=== PATIENT | male | born 1945 | race Caucasian/White ===

== ENCOUNTER 2021-02-04 17:10 | Inpatient (IN) | payer OTHER ==
[~2021-02-04] VITALS: Ht 180.3 cm; Wt 60.1 kg
--- NOTE | 2021-02-04 17:10 | NUR ---
PT BIBRA 89 FROM HOME "FOUND PT LAYING ON THE FLOOR WITH FECES AND COMPLAINING OF WEAKNESS AND MULTIPLE FALL" PT IS AAOX3, NOT IN RESPIRATORY DISTRESS, HOOKED TO WALL TAPER, KEPT RESTED AND COMFORTABLE. WILL CONTINUE TO MONITOR.
--- NOTE | 2021-02-04 17:25 | NUR ---
IV LINE ESTABLISHED BLOOD DRAWN AND SENT TO LAB.
--- NOTE | 2021-02-04 17:51 | NUR ---
SEEN AND EXAMINED BY .
[2021-02-04 18:04] LABS: BASOPHILS % (AUTO) 0.6 % (0.0-2.0); EOSINOPHILS % (AUTO) 8.1 % (0.0-6.0); HEMATOCRIT 45 % (39-51); HEMOGLOBIN 14.8 g/dL (13.5-17.5); LYMPHOCYTES # (AUTO) 1.6 K/uL (0.8-4.8); LYMPHOCYTES % (AUTO) 25.7 % (20.0-44.0); MEAN CORPUSCULAR HGB CONC 33 g/dl (31.0-36.0); MEAN CORPUSCULAR VOLUME 105 fL (80-96); MONOCYTES # (AUTO) 0.4 K/uL (0.1-1.30); MONOCYTES % (AUTO) 6.4 % (2.0-12.0); NEUTROPHILS # (AUTO) 3.6 K/uL (1.8-8.9); NEUTROPHILS % (AUTO) 59.2 % (43.0-81.0); PLATELET COUNT (AUTO) 198 K/uL (150-450); WHITE BLOOD COUNT (AUTO) 6.1 K/uL (4.3-11.0)
--- NOTE | 2021-02-04 18:17 | NUR ---
CALLED [facility] [phone] THEY WILL FAX INFO TO US.
--- NOTE | 2021-02-04 18:17 | NUR ---
URINE SPECIMEN COLLECTED AND SENT TO LAB.
--- NOTE | 2021-02-04 18:19 | NUR ---
MOVE SHEET SUBMITTED.
--- NOTE | 2021-02-04 18:22 | NUR ---
PT IS WHEELED TO CT SCAN VIA [facility].
[2021-02-04 18:26] LABS: BILIRUBIN,URINE SMALL (NEGATIVE); COLOR,URINE DARK YELLOW (YELLOW); LEUKOCYTE ESTERASE ,URINE Negative (NEGATIVE); NITRITE, URINE Negative (NEGATIVE); PH,URINE 5.5 (5.0-8.0); PROTEIN,URINE Trace mg/dl (NEGATIVE); UGLUCOSE Negative (NEGATIVE)
[2021-02-04 18:29] LABS: ALCOHOL, BLOOD < 3 mg/dL (0-0); MAGNESIUM 2.4 mg/dL (1.8-2.4)
[2021-02-04] MEDS ORDERED: LISI40TA13 PO (18:31)
[2021-02-04] MEDS ORDERED: DABI150C PO (18:31)
[2021-02-04] MEDS ORDERED: CALC500T52 PO (18:31)
[2021-02-04] MEDS ORDERED: ATOR10TA PO (18:31)
[2021-02-04] MEDS ORDERED: CHOL100062 PO (18:31)
[2021-02-04] MEDS ORDERED: DICL100G34 TP (18:31)
[2021-02-04] MEDS ORDERED: BISO10TA PO (18:31)
[2021-02-04] MEDS ORDERED: DILT180C93 PO (18:31)
[2021-02-04] MEDS ORDERED: HYDR12.55 PO (18:31)
[2021-02-04 18:38] LABS: ALANINE AMINOTRANSFERASE 35 U/L (12-78); ALBUMIN 2.6 g/dL (3.4-5.0); ALKALINE PHOSPHATASE 117 U/L (46-116); ASPARTATE AMINOTRANSFERASE 50 U/L (15-37); BILIRUBIN,DIRECT 0.7 mg/dL (0.0-0.2); BILIRUBIN,TOTAL 1.4 mg/dL (0.2-1.0); CARBON DIOXIDE 26 mmol/L (21-32); CHLORIDE 108 mmol/L (98-107); CREATININE 1.4 mg/dL (0.6-1.3); GLUCOSE 114 mg/dL (74-106); POTASSIUM 5.4 mmol/L (3.5-5.1); SODIUM SERUM 145 mmol/L (136-145); TOTAL PROTEIN, SERUM 7.9 g/dL (6.4-8.2); UREA NITROGEN, BLOOD 49 mg/dL (7-18)
[2021-02-04 18:50] LABS: CALCIUM, SERUM 8.5 mg/dL (8.5-10.1)
[2021-02-04] MEDS ORDERED: CEFTRIAXONE 1GM BAG (ER ONLY) 50 ML IV ONE (19:13)
--- NOTE | 2021-02-04 19:13 | NUR ---
CALLED JADA FOR READ
[2021-02-04 19:16] LABS: BACTERIA,URINE Few /HPF (None Seen); SQUAMOUS EPITHELIAL CELL,UR Many /HPF (None Seen); URINE AMORPHOUS URATE Many /HPF (None Seen)
[2021-02-04 19:17] LABS: WBC,URINE 0-2 /HPF (0-3)
[2021-02-04] MEDS ORDERED: CEFTRIAXONE 1 G in IV D5W 50 ML IV ONE (19:30)
[2021-02-04] MEDS ORDERED: NS 0.9% IV ONE (19:30)
--- NOTE | 2021-02-04 19:43 | NUR ---
BROUGHT TO CT
[2021-02-04 19:46] LABS: CREATINE KINASE, TOTAL 443 U/L (39-308)
[2021-02-04] MEDS ORDERED: AZITHROMYCIN 500 MG VIAL ONE (19:54)
[2021-02-04] MEDS ORDERED: ASPIRIN 81 MG TAB.CHEW PO ONE (20:00)
[2021-02-04] MEDS ORDERED: AZITHROMYCIN 500 MG in IV D5W 250 ML IV ONE (20:00)
--- NOTE | 2021-02-04 20:48 | NUR ---
NOTICED BP TO BE IN THE HIGH 80'S. I DID NOTIFY DAISY SETH. MD VILLA WILL ORDER 1L NS.
[2021-02-04] MEDS ORDERED: IV NS 0.9% 1,000 ML IV ONE (21:00)
[2021-02-04] MEDS ORDERED: NOREPINEPHRINE 4 MG/4 ML AMPUL IV ONE (21:07)
--- NOTE | 2021-02-04 21:21 | NUR ---
UPDATED PT WEIGHT 143LBS.
--- NOTE | 2021-02-04 21:27 | NUR ---
SAL SETH AT BEDSIDE FOR CENTRAL LINE. PT SIGNED CONSENT.
[2021-02-04] MEDS ORDERED: NOREPINEPHRINE 8 MG in IV NS 0.9% 242 ML IV PRN ×2 (21:30→22:30)
[2021-02-04] MEDS ORDERED: LIDOCAINE 2% JEL UROJET 10 ML MM ONE (21:46)
--- NOTE | 2021-02-04 21:54 | NUR ---
SAL SETH TALKING TO DR. HUGHES REGARDING PT.
--- NOTE | 2021-02-04 22:18 | NUR ---
ROOM 258
[2021-02-04] MEDS ORDERED: INSULIN REGULAR, HUMAN 100 UNIT/ML 10 ML VIAL IV ONE (22:30)
[2021-02-04] MEDS ORDERED: DICLOFENAC TOPICAL 100 GM GEL..GM. TP PRN (22:30)
[2021-02-04] MEDS ORDERED: ONDANSETRON HCL/PF 4 MG/2 ML VIAL IVP PRN (22:30)
[2021-02-04] MEDS ORDERED: DEXTROSE 50%-WATER 50 ML DISP.SYRIN IVP ONE (22:30)
[2021-02-04] MEDS ORDERED: ACETAMINOPHEN 325 MG TABLET PO PRN (22:30)
--- NOTE | 2021-02-04 22:54 | NUR ---
REPORT GIVEN TO RN, PT TRANSFERED PER ACLS PROTOCOL
[2021-02-04] MEDS ORDERED: VANCOMYCIN 1 GM in IV D5W 250ml IV ONE (23:00)
[2021-02-04 23:16] LABS: C-REACTIVE PROTEIN 10.9 mg/dL (0.0-0.9)
--- NOTE | 2021-02-04 23:30 | NUR ---
RN NOTES 2245 PM - ADMITTED PATIENT AWAKE ALERT ORIENTED X 2, FORGETFUL AND [place], DX. WITH SEPTIC SHOCK SECONDARY TO DUSTY. PER PATIENT HE HAS HEARING AID AT HOME. NO ACUTE RESPIRATORY DISTRESS ON O2 6LPM VIA NC SATURATION HARD TO READ, DUE TO LOW PERFUSION AND COLD EXT. O2 SENSOR PLACE IN A DIFFERENT PLACE BUT STILL LOW READING <90% NOT GOOD WAVE FORM. PATIENT IS ASYMPTOMATIC DENIES SOB. JUCTIONAL TACHYCARDIA WITH OCCASIONAL V- PACING, ON MONITOR. AFEBRILE. SBP ON 116 MMHG HOLD LEVOPHED AT THIS TIME WHICH STARTED FROM ER @ .1 MCG/KG/MIN. IV SITE ON RFA, LAC AND RIGHT FEMORAL TLC ALL INTACT AND PATENT WITH GOOD BLOOD RETURN. PRESENT WITH CHAMBERS CATH DRAINED VIA GRAVITY. MULTIPLE WOUNDS NOTED. PICTURE TAKEN AND COVERED. KEPT PT CLEAN AND COMFORTABLE IN BED. TURN AND REPOSITION FOR SKIN MANAGEMENT. BED KEPT IN LOWEST POSSIBLE POSITION WITH BED ALARM KEPT ON. WILL CONTINUE TO MONITOR.
[2021-02-04] MEDS ORDERED: VANCOMYCIN 1 GM VIAL ONE (23:35)
[2021-02-04] MEDS ORDERED: PIPERACILLIN /TAZOBACTAM 3.375 G VIAL IV ONE (23:35)
[2021-02-04 23:45] VITALS: BP 129/17
[2021-02-05] VITALS (21 sets, daily range): BP systolic 95–129; BP diastolic 49–93
[2021-02-05] MEDS: PIPERACILLIN /TAZOBACTAM 3.375 G in IV D5W 50 ML IV SCH ×4 (00:11→18:30)
[2021-02-05] MEDS: IV NS 0.9% 250 ML IV PRN ×2 (00:15)
--- NOTE | 2021-02-05 00:15 | NUR ---
RN NOTES SEEN AND EXAMINED BY PRATEEK CUP SETTER LOCKSTITCH ON THE FLOOR, INFORMED REGARDING THE PATIENT STATED THAT HE DOESN'T WANT CPR OR GET INTUBATED WITNESSED BY CHARGE NURSE .
[2021-02-05] MEDS ORDERED: DEXTROSE 50%-WATER 50 ML DISP.SYRIN IV PRN (00:30)
--- NOTE | 2021-02-05 03:50 | NUR ---
RN NOTES INFORMED SOLAR PANEL INSTALLER PRATEEK THAT PATIENT RHYTHM IS AFIB WITH OCCASIONAL VPACING, ASYMPTOMATIC. BUT RHYTHM IS DIFFERENT FROM EKG. PER KANDICE PATIENT HAS A HISTORY OF AFIB ON PRADAXA AND CARDIZEM AND ITS NOT WORTH TO GIVE ANTI ARRHYTHMIC MED AT THIS TIME.
[2021-02-05 05:26] LABS: CALCIUM, SERUM 7.5 mg/dL (8.5-10.1); CREATININE 1.1 mg/dL (0.6-1.3); POTASSIUM 3.9 mmol/L (3.5-5.1)
[2021-02-05 05:30] LABS: ALBUMIN 1.9 g/dL (3.4-5.0); BILIRUBIN,TOTAL 0.9 mg/dL (0.2-1.0); MAGNESIUM 2.2 mg/dL (1.8-2.4); PHOSPHORUS 3.5 mg/dL (2.5-4.9); TOTAL PROTEIN, SERUM 5.8 g/dL (6.4-8.2)
[2021-02-05 05:37] LABS: THYROID STIMULATING HORMONE 0.904 uIU/mL (0.358-3.74)
[2021-02-05 06:02] LABS: BASOPHILS % (AUTO) 0.3 % (0.0-2.0); EOSINOPHILS % (AUTO) 7.4 % (0.0-6.0); HEMATOCRIT 37 % (39-51); HEMOGLOBIN 12.2 g/dL (13.5-17.5); LYMPHOCYTES # (AUTO) 1.2 K/uL (0.8-4.8); LYMPHOCYTES % (AUTO) 21.4 % (20.0-44.0); MEAN CORPUSCULAR HGB CONC 33 g/dl (31.0-36.0); MEAN CORPUSCULAR VOLUME 105 fL (80-96); MONOCYTES # (AUTO) 0.5 K/uL (0.1-1.30); MONOCYTES % (AUTO) 9.2 % (2.0-12.0); NEUTROPHILS # (AUTO) 3.4 K/uL (1.8-8.9); NEUTROPHILS % (AUTO) 61.7 % (43.0-81.0); PLATELET COUNT (AUTO) 139 K/uL (150-450); RED BLOOD CELL COUNT(AUTO) 3.48 MIL/uL (4.5-6.0); WHITE BLOOD COUNT (AUTO) 5.5 K/uL (4.3-11.0)
--- NOTE | 2021-02-05 07:00 | NUR ---
RN NOTES PATIENT REMAINED ALERT ORIENTED AND COOPERATIVE. NO RESPIRATORY DISTRESS WITH LOW PERFUSION PATIENT SATURATION HAVE A BAD WAVEFORM UNABLE TO READ CORRECTLY. KEPT O2 6LPM. PATIENT ASLEEP WELL WITHOUT CHANGE OF CONDITION. KEPT PT CLEAN AND DRY. TURN AND REPOSITION Q2H AND PRN. POTASSIUM CORRECTED TODAY FROM YESTERDAY LATEST POTASSIUM 3.9. ENDORSED CONTINUITY OF CARE TO AM NURSE.
--- NOTE | 2021-02-05 07:30 | NUR ---
BENCH PRECISION ASSEMBLER OPENING NOTES: PATIENT RECEIVED IN BED,ON 6LPM VIA NC. PT IS A/OX2/3. BREATHING EVEN AND UNLABORED. PROVIDED MORNING CARE AND SERVED BREAKFAST. HOB KEPT ELEVATED. NO DISTRESS NOTED, WILL CONTINUE TO MONITOR,CALL LIGHT WITHIN REACH.
[2021-02-05] MEDS: BLOOD SUGAR DIAGNOSTIC 1 EACH STRIP IN SCH ×4 (07:50→22:12)
[2021-02-05] MEDS: INSULIN REGULAR, HUMAN 100 UNIT/ML 3 ML VIAL SQ PRN ×3 (07:50→22:14)
[2021-02-05] MEDS: ASPIRIN 81 MG TAB.CHEW PO SCH (08:37)
[2021-02-05] MEDS: PANTOPRAZOLE 40 MG VIAL IV SCH (08:38)
[2021-02-05] MEDS: CHOLECALCIFEROL 1,000 UNIT TABLET (VIT D3) PO SCH (08:38)
[2021-02-05] MEDS: CALCIUM CARBONATE (1250) 500 MG TABLET PO SCH ×2 (08:38→16:41)
[2021-02-05] MEDS: DILTIAZEM HCL CD 180 MG PO SCH (08:55)
[2021-02-05] MEDS ORDERED: ATORVASTATIN 10 MG TABLET PO SCH (09:00)
[2021-02-05] MEDS ORDERED: DABIGATRAN ETEXILATE MESYLATE 150 MG CAPSULE PO SCH (09:00)
--- NOTE | 2021-02-05 09:32 | NUR ---
WOUND CARE CONSULT: PT NOT SEEN YET FOR SKIN ASSESSMENT AT THIS TIME DUE TO PT WANTING TO REST PER RN. REVIEWED CHART, NURSING DOCUMENTATION AND PHOTOS WHICH INDICATE MULTIPLE WOUNDS PRESENT ON ADMISSION INCLUDING OPEN AREAS TO EXTREMITIES, SCARRING TO SACRAL AREA, PRESSURE ULCERS TO RT SHOULDER AND RT HIP. PT IS ON SOHAIL ISOFLEX LOW AIRLOSS BED. POSSIBLE DPM AND SURGICAL CONSULTS PER PMD. RECOMMENDATIONS MADE FOR SKIN PROTECTION AND WOUND CARE. DISCUSSED WITH NURSING STAFF. MD IN AGREEMENT WITH PLAN OF CARE. Addendum: 02/05/21 at 0955 by W[address]Y L[address] MYRON PHAN AND DR STOUT CALLED FOR SURGICAL AND DPM CONSULT REQUESTS. DISCUSSED WITH BLENDER OPERATOR.
[2021-02-05] MEDS ORDERED: HYDROGEL DRESSING 90 GM TUBE TP PRN (10:00)
[2021-02-05] MEDS: HYDROGEL DRESSING 90 GM TUBE TP SCH (10:14)
[2021-02-05] MEDS: PROSOURCE / PROSTAT (PYXIS) 30 ML UDC PO SCH (11:30)
--- NOTE | 2021-02-05 12:00 | NUR ---
MD SANCHES AWARE OF PATIENT'S TACHYCARDIA
--- NOTE | 2021-02-05 12:15 | NUR ---
SS consult: SS consult completed for patient who was found sitting in his own feces by rommate after falling on the floor and being unable to get up. The pt. is a 75 year old male with Hx. Of CVA, Pacemaker currently receiving Tx in the ICU. XU met with pt. bedside with caregiver at bedside, Verona [phone] also at bedside. The pt. is A&O X3 and makes good eye contact. The pt. is hard of hearing with euthymic mood. The pt.s thought process and content are WNL. The pt. denies SI/HI and denies hallucinations. Per caregiver the pt. lives at home [[address] [facility] [address]; [phone]] with roommate. Per Verona, she cares for the pt. 8 hours per day and was not home when the incident occurred. Verona stated that the pt. has a surgical procedure done on one or both of his legs for edema and has been requiring more help with ADLs since then. Per Verona, the pt. is seen by PT(2x/week) and wound nurse. Patient provided information for DPOA, Stephanie Wisdom [phone] and gave verb al consent for XU to speak with DPOA. XU requested Stephanie to fax [employer] Directive to SW. XU will placed document in pt.s chart upon receiving it. Per Stephanie she and pt.s friend, Remy Pinzon are the CO-DPOA for this pt. Noted. XU discussed concern for pt.s safety and additional caregiving for pt. at home. Stephanie stated that the pt. is resistant to having additional caregivers at home. Pt. wants to continue to be independent. However, since his foot procedure about 2 months ago pt. has been struggling with ADLs. Stephanie is agreeable to ensuring the pt. obtains additional caregivers for pt. Stephanie stated the pt. is financially stable and can afford to pay for additional caregiving. XU provided pt.s caregiver Verona with senior resources and she accepted them :
[2021-02-05] MEDS ORDERED: MINERAL OIL/PETROLATUM,WHITE 120 GM JAR TP PRN (12:30)
--- NOTE | 2021-02-05 16:10 | NUR ---
RN NOTE- PT TRANSFERRED FROM ICU TO 3W. REPORT RECEIVED FROM KAILEY RN. PT W DX OF SEPTIC SHOCK. PT ON 10L O2 SIMPLE MASK, SATURATION 96%. NO SOB NOTED. NO APPARENT DISTRESS. VS- BP- 160/65, HR- 119, RR- 20, ACCU CHECK BS- 92 NO SSI COVERAGE. IV ACCESS RT FEMORAL CATHETER, INTACT AND PATENT. CHAMBERS CATHETER DRAINING CLEAR YELLOW UA. DENIES PAIN OR DISCOMFORT AT PRESENT. SAFETY MEASURES IMPLEMENTED, SIDE RAILS UP X 2 , CALL LIGHT IN REACH, BED LOCKED POSITION. WILL CONTINUE PLAN OF CARE.
--- NOTE | 2021-02-05 16:15 | NUR ---
Patient transferred to [facility] with 02 via simple mask. No c/o sob or distress.Transported under tele box. Patient provided wound care.Iniguez cath intact and hanging to gravity with yellow urine 300 cc. Turned and repositioned q2h and prn. Endorsed to Sergio NAVARRO
[2021-02-05] MEDS: ALBUMIN 25% 25 GM in PREMIX 1 EA IV SCH ×2 (16:40→17:58)
[2021-02-05] MEDS: CLOTRIMAZOLE 1% 15 GM TUBE TP SCH (16:41)
[2021-02-05] MEDS: FUROSEMIDE 20 MG/2 ML VIAL IV SCH (16:41)
--- NOTE | 2021-02-05 17:45 | NUR ---
RN NOTE- HEEL PROTECTORS APPLIED BILATERALLY. REPOSITIONED FOR COMFORT.
--- NOTE | 2021-02-05 19:30 | NUR ---
MACHINE PLATE STACKER OPENING NOTE RECEIVED PT AWAKE IN BED. A/OX 2-3. PT STABLE ON SIMPLE MASK 10L OXYGEN. PT ON EXTERNAL CARDIAC MONITORING AFIB . L UPPER CHEST WALL CATHETER NOTED AND IN PLACE. NO S/S OF ANY APPARENT DISTRESS NOTED. RESPIRATIONS EVEN AND UNLABORED, SKIN IS WARM TO TOUCH. CAPILLARY REFILL <3 SECONDS, PULSES PRESENT BILATERALLY, GOOD CIRCULATION NOTED. IV ACCESS NOTED IN R FEMORAL N PLACE. ASPIRATION AND SAFETY PRECAUTIONS IN PLACE AND MAINTAINED AT ALL TIMES. BED IN LOWEST LOCKED POSITION, SIDE RAILS UP X2, TABLE AND CALL LIGHT WITHIN REACH. WILL CONTINUE PLAN OF CARE.
--- NOTE | 2021-02-05 22:11 | NUR ---
BS 104. NO INSULIN COVERAGE PER SLIDING SCALE
[2021-02-05] MEDS ORDERED: VANCOMYCIN 1 GM in IV D5W 250 ML IV SCH (23:00)
--- NOTE | 2021-02-05 23:35 | NUR ---
PT REMOVED SIMPLE MASK AND DESATURATING WITH AFIB . PT NOT TOLERATING SIMPLE MASK, ADVANCED TO NON REBREATHER. DR STEVIE GEORGE AND CHARGE NURSE MADE AWARE. ORDERS READ BACK AND CARRIED OUT. PT TOLERATED NON REBREATHER MASK. WILL CONTINUE TO MONITOR PT.
[2021-02-06] MEDS ORDERED: DILTIAZEM HCL 50 MG IV IV ONE (00:30)
[2021-02-06] MEDS: PIPERACILLIN /TAZOBACTAM 3.375 G in IV D5W 50 ML IV SCH ×3 (00:39→12:40)
[2021-02-06 00:42] LABS: ABG BASE EXCESS -4.3 mmol/L; ABG OXYGEN SATURATION 96.6 % (92.0-98.5); ABG PCO2 36.5 mmHg (35.0-45.0); ABG PH 7.366 (7.350-7.450); ABG PO2 94.7 mmHg (75.0-100.0); AaDO2 581.8 mmHg; COHb 0.4 % (0.5-1.5); MetHb 0.3 % (0.0-1.5); O2Hb 95.9 % (94.0-97.0); SITE, ABG Left Radial; VENT MODE, BG NRB 15L
[2021-02-06] MEDS ORDERED: DILTIAZEM HCL 25 MG IV ONE (01:09)
[2021-02-06 04:23] VITALS: BP 123/56
--- NOTE | 2021-02-06 06:00 | NUR ---
MARKETING COMMUNITY LIAISON CLOSING NOTE PT IS IN BED AWAKE. PT IS STABLE ON NON REBREATHER @15L, NO SOB NOTED. NO S/S OF RESPIRATORY DISTRESS. PT IS BED REST. IV ACCESS IS INTACT, PATENT, AND FLUSHING WELL. . ALL NEEDS HAVE BEEN MET. ALL CARE, NEEDS, MEDICATIONS, AND TREATMENT ADMINISTERED ANTICIPATED PER ORDER. SAFETY, SEIZURE, AND ASPIRATION PRECAUTIONS MAINTAINED AT ALL TIMES. BED IN LOWEST LOCKED POSITION, HOB ELEVATED, SIDE RAILS UPX2. CALL LIGHT AND TABLE WITHIN REACH. SITTER AT BEDSIDE. WILL ENDORSE TO ONCOMING NURSE FOR MADY.
[2021-02-06 06:05] LABS: BASOPHILS % (AUTO) 0.4 % (0.0-2.0); EOSINOPHILS % (AUTO) 7.4 % (0.0-6.0); HEMATOCRIT 37 % (39-51); HEMOGLOBIN 12.1 g/dL (13.5-17.5); LYMPHOCYTES # (AUTO) 0.9 K/uL (0.8-4.8); LYMPHOCYTES % (AUTO) 15.7 % (20.0-44.0); MEAN CORPUSCULAR HGB CONC 33 g/dl (31.0-36.0); MEAN CORPUSCULAR VOLUME 106 fL (80-96); MONOCYTES # (AUTO) 0.6 K/uL (0.1-1.30); MONOCYTES % (AUTO) 10.7 % (2.0-12.0); NEUTROPHILS % (AUTO) 65.8 % (43.0-81.0); PLATELET COUNT (AUTO) 123 K/uL (150-450)
[2021-02-06] MEDS: BLOOD SUGAR DIAGNOSTIC 1 EACH STRIP IN SCH ×4 (06:31→21:43)
--- NOTE | 2021-02-06 07:10 | NUR ---
SUPERVISOR METAL CANS OPENING NOTE RECEIVING PT AWAKE IN BED. A/O X3. PT IS on 15LPM VIA NON-REBREATHER MASK SATURATING AT 98-100%. PT HAS NO C/O PAIN OR DISCOMFORT AT THIS TIME. PT ON EXTERNAL PRINCIPLE SOFTWARE ENGINEER READING AFIB. IV ACCESS IN RIGHT FEMORAL CATHETER, INTACT AND PATENT. PATIENT WITH CHAMBERS CATHETER TO URINE BAG WITH DRAINING WELL. SAFETY MEASURES MAINTAINED. BED IN LOWEST LOCKED POSITION, HOB ELEVATED, SIDE RAILS UP X2. CALL LIGHT AND TABLE WITHIN REACH. WILL CONTINUE TO MONITOR PATIENT.
[2021-02-06 07:25] LABS: ALBUMIN 2.5 g/dL (3.4-5.0); BILIRUBIN,TOTAL 1.1 mg/dL (0.2-1.0); CALCIUM, SERUM 7.6 mg/dL (8.5-10.1); CREATININE 1.3 mg/dL (0.6-1.3); MAGNESIUM 2.3 mg/dL (1.8-2.4); PHOSPHORUS 4.1 mg/dL (2.5-4.9); POTASSIUM 4.1 mmol/L (3.5-5.1); TOTAL PROTEIN, SERUM 6.3 g/dL (6.4-8.2)
[2021-02-06 08:00] VITALS: BP 88/49
[2021-02-06] MEDS: FUROSEMIDE 20 MG/2 ML VIAL IV SCH (08:58)
[2021-02-06] MEDS: CALCIUM CARBONATE (1250) 500 MG TABLET PO SCH ×2 (08:58→18:03)
[2021-02-06] MEDS: ASPIRIN 81 MG TAB.CHEW PO SCH (08:58)
[2021-02-06] MEDS: PANTOPRAZOLE 40 MG VIAL IV SCH (08:58)
[2021-02-06] MEDS: CHOLECALCIFEROL 1,000 UNIT TABLET (VIT D3) PO SCH (08:58)
[2021-02-06] MEDS: CLOTRIMAZOLE 1% 15 GM TUBE TP SCH ×2 (08:59→18:04)
[2021-02-06] MEDS: HYDROGEL DRESSING 90 GM TUBE TP SCH (08:59)
[2021-02-06] MEDS: DILTIAZEM HCL CD 180 MG PO SCH (09:00)
[2021-02-06] MEDS: PROSOURCE / PROSTAT (PYXIS) 30 ML UDC PO SCH (09:15)
[2021-02-06 10:41] LABS: ABG BASE EXCESS -3.3 mmol/L; ABG OXYGEN SATURATION 96.6 % (92.0-98.5); ABG PCO2 33.5 mmHg (35.0-45.0); ABG PH 7.407 (7.350-7.450); ABG PO2 91.4 mmHg (75.0-100.0); AaDO2 443.8 mmHg; COHb 0.3 % (0.5-1.5); MetHb 0.1 % (0.0-1.5); O2Hb 96.2 % (94.0-97.0); SITE, ABG Right Brachial; VENT MODE, BG NRB 15 L
--- NOTE | 2021-02-06 11:04 | NUR ---
HARMONICA MAKER NOTE RECEIVED A CALL FROM DHARA BARAHONA [facility] [place] WHO SAID THAT THEY MIGHT HOLD OFF THE THORACENTHESIS TODAY PENDING MD APPROVAL BECAUSE PATIETNT RECEIVED PRADAXA YESTERDAY MORNING.
[2021-02-06 12:00] VITALS: BP 110/53
--- NOTE | 2021-02-06 12:16 | NUR ---
SW completed APS report Intake # [phone] for Self-neglect.
[2021-02-06] MEDS: DIGOXIN INJ 0.5 MG/2 ML AMPUL IV SCH ×2 (12:59→18:05)
[2021-02-06 16:00] VITALS: BP 105/58
--- NOTE | 2021-02-06 17:00 | NUR ---
NOVELTIES SALES REPRESENTATIVE NOTE PATIENT WITH ORDER FOR TRANSFER TO [facility] ONCE WITH AVAILABLE BED. NO AVAILABLE BED AT THE MOMENT. PATIENT AND TRUSTEE MICHAEL AWARE.
--- NOTE | 2021-02-06 19:00 | NUR ---
CERAMIC TILE MECHANIC CLOSING NOTE RECEIVING PT AWAKE IN BED. A/O X3. PT IS on 15LPM VIA NON-REBREATHER MASK SATURATING AT 98-100%. BUT PATIENT'S OXYGEN DROPS TO 74% WHEN PATIENT IS EATING AND HE NEEDS TO TAKE THE MASK OFF. PT HAS NO C/O PAIN OR DISCOMFORT AT THIS TIME. PT ON EXTERNAL SPINAL SURGEON READING CONTROLLED FLUTTER WITH BPM AT 70'S. IV ACCESS IN RIGHT FEMORAL CATHETER, INTACT AND PATENT. PATIENT WITH CHAMBERS CATHETER TO URINE BAG WITH DRAINING WELL. SAFETY MEASURES MAINTAINED. BED IN LOWEST LOCKED POSITION, HOB ELEVATED, SIDE RAILS UP X2. CALL LIGHT AND TABLE WITHIN REACH. PATIENT STILL FOR TRANSFER TO [facility] ONCE WITH AVAILABLE BED. AWAITING CALL. WILL ENDORSE PATIENT FOR CONTINUITY OF CARE.
[2021-02-06 20:00] VITALS: BP 112/58
[2021-02-07] VITALS: BP 119/59
[2021-02-07] MEDS: DIGOXIN INJ 0.5 MG/2 ML AMPUL IV SCH (01:02)
[2021-02-07 04:00] VITALS: BP 148/58
[2021-02-07] MEDS: BLOOD SUGAR DIAGNOSTIC 1 EACH STRIP IN SCH ×4 (05:43→21:33)
--- NOTE | 2021-02-07 06:00 | NUR ---
INVOICE CONTROL CLERK NOTES BS CHECKED 51. RECHECKED BS 53. D50 GIVEN ORDERED. WILL CONTINUE TO MONITOR.
--- NOTE | 2021-02-07 06:30 | NUR ---
HAT BRIM AND CROWN LAMINATING OPERATOR NOTES BS RECHECKED 100. PT AWAKE A/O. SKIN WARM AND DRY TO TOUCH. WILL CONTINUE TO MONITOR.
--- NOTE | 2021-02-07 06:39 | NUR ---
SPECTACLE TRUER NOTES AWAKE & RESPONSIVE. NOT IN ANY DISTRESS. NO SOB NOTED. DENIES ANY PAIN OR DISCOMFORT AT THIS TIME. ON TELE A-FLUTTER @ 95 WITH TLC PATENT & INTACT. AM CARE DONE. MONITORED ACCORDINGLY. CALL LIGHT WITHIN REACH. BED IN LOWEST POSITION. SR UP X 3 FOR SAFETY WITH BED ALARM ON FOR SAFETY. WILL ENDORSE TO NEXT SHIFT.
[2021-02-07 06:40] LABS: CREATININE 1.3 mg/dL (0.6-1.3); POTASSIUM 4.4 mmol/L (3.5-5.1)
--- NOTE | 2021-02-07 07:06 | NUR ---
MS RN OPENING NOTES RECEIVE PT AWAKE IN BED AT THIS TIME. AOX2-3. ABLE TO VERBALIZE NEEDS. NO S/O OF ANY ACUTE DISTRESS NOTED, DENIES PAIN AT THIS. PT ON 15LPM OXYGEN VIA NON REBREATHER. RIGHT FEMORAL CATH TRIPLE LUMEN NOTED, INTACT AND PATENT. CHAMBERS CATHETER IN PLACE DRAINING TO GRAVITY CLEAR YELLOW URINE OUTPUT. SAFETY PRECAUTIONS IN PLACE AND MAINTAINED AT ALL TIMES. BED IN LOWEST LOCKED POSITION, HOB ELEVATED, SIDE RAILS UP X2, CALL LIGHT AND TABLE WITHIN REACH. WILL CONTINUE TO MONITOR
[2021-02-07 08:00] VITALS: BP 146/71
[2021-02-07] MEDS: ASPIRIN 81 MG TAB.CHEW PO SCH (09:14)
[2021-02-07] MEDS: CALCIUM CARBONATE (1250) 500 MG TABLET PO SCH ×2 (09:15→17:10)
[2021-02-07] MEDS: CHOLECALCIFEROL 1,000 UNIT TABLET (VIT D3) PO SCH (09:15)
[2021-02-07] MEDS: DILTIAZEM HCL CD 180 MG PO SCH (09:15)
[2021-02-07] MEDS: PROSOURCE / PROSTAT (PYXIS) 30 ML UDC PO SCH (09:16)
[2021-02-07] MEDS: HYDROGEL DRESSING 90 GM TUBE TP SCH (09:16)
[2021-02-07] MEDS: CLOTRIMAZOLE 1% 15 GM TUBE TP SCH ×2 (09:17→17:10)
[2021-02-07] MEDS: PANTOPRAZOLE 40 MG VIAL IV SCH (09:26)
[2021-02-07] MEDS: FUROSEMIDE 20 MG/2 ML VIAL IV SCH (09:26)
--- NOTE | 2021-02-07 12:30 | NUR ---
TELEPHNE CONSENT FOR US GUIDED THORACENTESIS OBTAINED FROM TRUSTEE MICHAEL ([phone]), PT'S RESPONSIBLE REPUBLICAN, WITNESS BY ANOTHER NURSE, RAMON ALEXANDER. WILL CONTINUE WITH PLAN OF CARE
--- NOTE | 2021-02-07 14:20 | NUR ---
RIGHT SIDED THORACENTESIS FLUID DELIVERED TO LAB.
[2021-02-07 16:00] VITALS: BP 111/61
[2021-02-07] MEDS: INSULIN REGULAR, HUMAN 100 UNIT/ML 3 ML VIAL SQ PRN (17:27)
--- NOTE | 2021-02-07 17:30 | NUR ---
RIGHT FEMORAL CATHETER DRESSING CHANGED AT THIS TIME. WILL CONTINUE WITH PLAN OF CARE
--- NOTE | 2021-02-07 19:01 | NUR ---
RN CLOSING NOTES PATIENT AWAKE IN BED AT THIS TIME. REMAINED STABLE THROUGHOUT SHIFT. ALL CARE, NEEDS, AND MEDICATIONS ADMINISTERED PER ORDER. PAIN CONTROL ADMINISTERED, WOUND CARE AND CHAMBERS CATHETER CARE PROVIDED. PT REPOSITIONED Q2H AND PRN. ASPIRATIONS AND SAFETY PRECAUTIONS IN PLACE AND MAINTAINED AT ALL TIMES. BED IN LOWEST LOCKED POSITION, HOB ELEVATED, SIDE RAILS UP X2, CALL LIGHT AND TABLE WITHIN REACH. WILL ENDORSE TO DISABILITY AIDE RN FOR MADY
--- NOTE | 2021-02-07 19:35 | NUR ---
RN NOTES RECEIVED PATIENT SLEEPING BUT AROUSABLE IN HIS BED, A/OX2, ON NON REBREATHER, A-FLUTTER ON TELE MONITOR HR-72, F/C DRAINING CLEAR YELLOW URIEN, NO PAIN NOTED, NO SOB, CALL LIGHT WITHIN REACH, SIDERAILSUPX2, WILL CONTINUE TO MONITOR
[2021-02-07 19:57] VITALS: BP 138/58
[2021-02-08 04:58] VITALS: BP 139/62
[2021-02-08 06:34] LABS: CALCIUM, SERUM 8.2 mg/dL (8.5-10.1); POTASSIUM 4.1 mmol/L (3.5-5.1)
--- NOTE | 2021-02-08 06:36 | NUR ---
RN NOTES AWAKE, DENIES PAIN, NO SOB, MORNING CARE RENDERED, PT. NEEDS ATTENDED
--- NOTE | 2021-02-08 07:00 | NUR ---
MS RN OPENING NOTES RECEIVE PT AWAKE IN BED AT THIS TIME. AOX2-3. ABLE TO VERBALIZE NEEDS. NO S/O OF ANY ACUTE DISTRESS NOTED, DENIES PAIN AT THIS. PT ON 15LPM OXYGEN VIA NON REBREATHER SATURATING AT 98%. RIGHT FEMORAL CATH TRIPLE LUMEN NOTED, INTACT AND PATENT. CHAMBERS CATHETER IN PLACE DRAINING TO GRAVITY CLEAR YELLOW URINE OUTPUT. SAFETY PRECAUTIONS IN PLACE AND MAINTAINED AT ALL TIMES. BED IN LOWEST LOCKED POSITION, HOB ELEVATED, SIDE RAILS UP X2, CALL LIGHT AND TABLE WITHIN REACH. WILL CONTINUE TO MONITOR
[2021-02-08] MEDS: BLOOD SUGAR DIAGNOSTIC 1 EACH STRIP IN SCH ×4 (07:50→22:33)
[2021-02-08 08:04] VITALS: BP 148/56
[2021-02-08] MEDS: PANTOPRAZOLE 40 MG TABLET.DR PO SCH (08:31)
[2021-02-08] MEDS: CHOLECALCIFEROL 1,000 UNIT TABLET (VIT D3) PO SCH (09:54)
[2021-02-08] MEDS: CALCIUM CARBONATE (1250) 500 MG TABLET PO SCH ×2 (09:54→17:21)
[2021-02-08] MEDS: ASPIRIN 81 MG TAB.CHEW PO SCH (09:54)
[2021-02-08] MEDS: DILTIAZEM HCL CD 180 MG PO SCH (09:55)
[2021-02-08] MEDS: FUROSEMIDE 20 MG/2 ML VIAL IV SCH ×2 (09:55→17:21)
[2021-02-08] MEDS: HYDROGEL DRESSING 90 GM TUBE TP SCH (10:17)
[2021-02-08] MEDS: CLOTRIMAZOLE 1% 15 GM TUBE TP SCH ×2 (10:17→17:22)
[2021-02-08] MEDS: PROSOURCE / PROSTAT (PYXIS) 30 ML UDC PO SCH (10:26)
[2021-02-08] MEDS: INSULIN REGULAR, HUMAN 100 UNIT/ML 3 ML VIAL SQ PRN (12:06)
[2021-02-08 16:48] VITALS: BP 112/48
--- NOTE | 2021-02-08 17:07 | NUR ---
WOUND CARE AND RIGHT FEMORAL CATH DRESSING ADMINISTERED AT THIS TIME. WILL CONTINUE WITH PLAN OF CARE
--- NOTE | 2021-02-08 18:53 | NUR ---
RN CLOSING NOTES PATIENT AWAKE IN BED AT THIS TIME. REMAINED STABLE THROUGHOUT SHIFT. ALL CARE, NEEDS, AND MEDICATIONS ADMINISTERED PER ORDER. PATIENT KEPT CLEAN AND DRY. REPOSITIONED Q2H AND PRN. WOUND CARE AND CHAMBERS CATHETER CARE PROVIDED. CENTRAL LINE DRESSING CHANGED. ASPIRATIONS AND SAFETY PRECAUTIONS IN PLACE AND MAINTAINED AT ALL TIMES. BED IN LOWEST LOCKED POSITION, HOB ELEVATED, SIDE RAILS UP X2, CALL LIGHT AND TABLE WITHIN REACH. WILL ENDORSE TO WELDER FITTER RN FOR MADY
--- NOTE | 2021-02-08 19:45 | NUR ---
MSRN ON 15 L VIA NRM, NO RESPIRATORY DISTRESS, NEEDS CLOSER OBSERVATION AND FREQ CHECKED. NO NEEDS FOR NOW CONTINUED
[2021-02-08 20:00] VITALS: BP 127/58
--- NOTE | 2021-02-09 00:46 | NUR ---
MSRN REPORT GIVEN TO INCOMING RN FOR CONTINUITY OF CARE.
--- NOTE | 2021-02-09 06:33 | NUR ---
RN CLOSING NOTES: PATIENT AWAKE IN BED , BED IN LOW POSITION, CALL LIGHTS WITHIN REACH, NO COMPLAIN OF PAIN AND DISCOMFORT AT THIS TIME, PA A/O X1, CHAMBERS CATHETER -1000CC URINE OUTPUT, HAS FEMORAL CATH ILC R INFUSING WELL, ON 20CC NSS KVO, PATIENT IS ON O2 INHALATION VIA NONE REBREATHER MASK AT 15 LPM TO TITRATE, NO SOB NOTED, ALL NEEDS MET, KEPT CLEAN AND DRY, WILL CONTINUE ENDORSE TO INCOMING SHIFT.
[2021-02-09 06:45] LABS: BASOPHILS % (AUTO) 0.5 % (0.0-2.0); EOSINOPHILS % (AUTO) 16.1 % (0.0-6.0); HEMATOCRIT 39 % (39-51); HEMOGLOBIN 12.9 g/dL (13.5-17.5); LYMPHOCYTES # (AUTO) 1.1 K/uL (0.8-4.8); LYMPHOCYTES % (AUTO) 16.9 % (20.0-44.0); MEAN CORPUSCULAR HGB CONC 33 g/dl (31.0-36.0); MEAN CORPUSCULAR VOLUME 104 fL (80-96); MONOCYTES # (AUTO) 0.4 K/uL (0.1-1.30); MONOCYTES % (AUTO) 6.6 % (2.0-12.0); NEUTROPHILS # (AUTO) 3.9 K/uL (1.8-8.9); NEUTROPHILS % (AUTO) 59.9 % (43.0-81.0); PLATELET COUNT (AUTO) 147 K/uL (150-450); RED BLOOD CELL COUNT(AUTO) 3.72 MIL/uL (4.5-6.0); WHITE BLOOD COUNT (AUTO) 6.5 K/uL (4.3-11.0)
--- NOTE | 2021-02-09 06:47 | NUR ---
RN NOTES BS-103 NO INSULIN GIVEN
[2021-02-09 06:58] LABS: ALBUMIN 1.9 g/dL (3.4-5.0); BILIRUBIN,TOTAL 1.6 mg/dL (0.2-1.0); CALCIUM, SERUM 7.8 mg/dL (8.5-10.1); CREATININE 0.9 mg/dL (0.6-1.3); MAGNESIUM 2.1 mg/dL (1.8-2.4); PHOSPHORUS 2.8 mg/dL (2.5-4.9); POTASSIUM 3.5 mmol/L (3.5-5.1); TOTAL PROTEIN, SERUM 6.2 g/dL (6.4-8.2)
[2021-02-09 08:00] VITALS: BP 129/56
[2021-02-09] MEDS: BLOOD SUGAR DIAGNOSTIC 1 EACH STRIP IN SCH ×4 (08:44→21:45)
[2021-02-09] MEDS: CALCIUM CARBONATE (1250) 500 MG TABLET PO SCH ×2 (09:46→18:02)
[2021-02-09] MEDS: ASPIRIN 81 MG TAB.CHEW PO SCH (09:46)
[2021-02-09] MEDS: CHOLECALCIFEROL 1,000 UNIT TABLET (VIT D3) PO SCH (09:46)
[2021-02-09] MEDS: FUROSEMIDE 20 MG/2 ML VIAL IV SCH ×2 (09:47→18:02)
[2021-02-09] MEDS: PROSOURCE / PROSTAT (PYXIS) 30 ML UDC PO SCH (09:47)
[2021-02-09] MEDS: DILTIAZEM HCL CD 180 MG PO SCH (09:47)
[2021-02-09] MEDS: PANTOPRAZOLE 40 MG TABLET.DR PO SCH (09:49)
[2021-02-09] MEDS: CLOTRIMAZOLE 1% 15 GM TUBE TP SCH ×2 (10:14→18:25)
[2021-02-09] MEDS: HYDROGEL DRESSING 90 GM TUBE TP SCH (10:14)
--- NOTE | 2021-02-09 11:30 | NUR ---
REMOVED NON REBREATHER,ATTEMPTED SIMPLE MASK 8L,COULD NOT TOLERATE.STATES MASK DOES NO FIT RIGHT.
[2021-02-09] MEDS: INSULIN REGULAR, HUMAN 100 UNIT/ML 3 ML VIAL SQ PRN ×2 (12:23→21:47)
--- NOTE | 2021-02-09 15:59 | NUR ---
ATTEMPTED SIMPLE MASK 10 L.WATCHING PT.P OX ON.P OX NOW 93%.WAS 99% WITH NON REBREATHER.
[2021-02-09 16:00] VITALS: BP 112/50
--- NOTE | 2021-02-09 16:35 | NUR ---
PULSE OX GOING DOWN TO 89%,SO NON REBREATHER APPLIED AGAIN.
--- NOTE | 2021-02-09 18:54 | NUR ---
MASK SLIPS DOWN OR PT. REMOVING,POX GOES DOWN TO 77%.
--- NOTE | 2021-02-09 19:30 | NUR ---
MS RN OPENING NOTES RECEIVED PATIENT IN BED, AWAKE. AOX2-3. ABLE TO MAKE NEEDS KNOWN. NO S/SX OF ACUTE DISTRESS NOTED, DENIES PAIN AT THIS. PT ON 15LPM OXYGEN VIA NON REBREATHER MASK SATURATING AT 95%. NOTED WITH RIGHT FEMORAL CATH TRIPLE LUMEN, INTACT AND PATENT. CHAMBERS CATHETER IN PLACE DRAINING TO GRAVITY, NOTED CLEAR YELLOW URINE OUTPUT. SAFETY PRECAUTIONS IN PLACE AND MAINTAINED AT ALL TIMES. BED IN LOWEST LOCKED POSITION, HOB ELEVATED, SIDE RAILS UP X2, CALL LIGHT AND TABLE WITHIN REACH. WILL CONTINUE TO MONITOR PATIENT'S CURRENT STATUS.
[2021-02-09 20:00] VITALS: BP 149/65
--- NOTE | 2021-02-09 22:00 | NUR ---
RN NOTES CHECKED PATIENT'S BLOOD SUGAR, RESULT WAS 175, DUE PRN REGULAR INSULIN GIVEN ORDERED.
[2021-02-10] MEDS: INSULIN REGULAR, HUMAN 100 UNIT/ML 3 ML VIAL SQ PRN ×3 (06:00→16:32)
--- NOTE | 2021-02-10 06:20 | NUR ---
RN NOTES BLOOD SUGAR CHECKED, RESULT IS 175 MG/DL. REGULAR INSULIN GIVEN ORDERED.
--- NOTE | 2021-02-10 06:29 | NUR ---
MS RN CLOSING NOTES PATIENT IN BED, AWAKE. AOX2-3. ABLE TO MAKE NEEDS KNOWN. NO S/SX OF ACUTE DISTRESS NOTED, DENIES PAIN AT THIS TIME. PT ON 15LPM OXYGEN VIA NON REBREATHER MASK SATURATING AT 91%. WITH RIGHT FEMORAL CATH TRIPLE LUMEN, INTACT AND PATENT. CHAMBERS CATHETER IN PLACE DRAINING CLEAR YELLOW COLORED URINE. SAFETY PRECAUTIONS IN PLACE AND MAINTAINED AT ALL TIMES DURING THE SHIFT. BED IN LOWEST LOCKED POSITION, HOB ELEVATED, SIDE RAILS UP X2, CALL LIGHT AND TABLE WITHIN REACH. ALL NEEDS ATTENDED AND MET. WILL ENDORSE TO MORNING SHIFT NURSE FOR MADY.
[2021-02-10] MEDS: BLOOD SUGAR DIAGNOSTIC 1 EACH STRIP IN SCH ×4 (06:38→21:35)
[2021-02-10 06:40] LABS: BASOPHILS % (AUTO) 0.3 % (0.0-2.0); EOSINOPHILS % (AUTO) 2.1 % (0.0-6.0); HEMATOCRIT 42 % (39-51); HEMOGLOBIN 13.8 g/dL (13.5-17.5); LYMPHOCYTES # (AUTO) 1.2 K/uL (0.8-4.8); LYMPHOCYTES % (AUTO) 15.7 % (20.0-44.0); MEAN CORPUSCULAR HGB CONC 33 g/dl (31.0-36.0); MEAN CORPUSCULAR VOLUME 103 fL (80-96); MONOCYTES # (AUTO) 0.6 K/uL (0.1-1.30); NEUTROPHILS # (AUTO) 5.6 K/uL (1.8-8.9); NEUTROPHILS % (AUTO) 73.9 % (43.0-81.0); PLATELET COUNT (AUTO) 177 K/uL (150-450); RED BLOOD CELL COUNT(AUTO) 4.05 MIL/uL (4.5-6.0); WHITE BLOOD COUNT (AUTO) 7.5 K/uL (4.3-11.0)
--- NOTE | 2021-02-10 07:13 | NUR ---
MS RN OPENING NOTES RECEIVED PATIENT IN BED, AWAKE. AOX2-3. ABLE TO MAKE NEEDS KNOWN. NO S/SX OF ACUTE DISTRESS NOTED, DENIES PAIN AT THIS TIME. PT ON 15LPM OXYGEN VIA NON REBREATHER MASK SATURATING AT 95%. PATIENT HAS IV ACCESS ON RIGHT FEMORAL CATH TRIPLE LUMEN, INTACT AND PATENT. CHAMBERS CATHETER IN PLACE DRAINING TO GRAVITY, NOTED CLEAR YELLOW URINE OUTPUT. SAFETY PRECAUTIONS IN PLACE AND MAINTAINED AT ALL TIMES. BED IN LOWEST LOCKED POSITION, HOB ELEVATED, SIDE RAILS UP X2, CALL LIGHT AND TABLE WITHIN REACH. WILL CONTINUE TO MONITOR
[2021-02-10 07:23] LABS: ALBUMIN 1.9 g/dL (3.4-5.0); BILIRUBIN,TOTAL 2.4 mg/dL (0.2-1.0); CALCIUM, SERUM 8.2 mg/dL (8.5-10.1); PHOSPHORUS 2.4 mg/dL (2.5-4.9); POTASSIUM 3.4 mmol/L (3.5-5.1); TOTAL PROTEIN, SERUM 6.7 g/dL (6.4-8.2)
[2021-02-10 08:08] VITALS: BP 124/66
[2021-02-10] MEDS: PANTOPRAZOLE 40 MG TABLET.DR PO SCH (08:09)
[2021-02-10] MEDS: DILTIAZEM HCL CD 180 MG PO SCH (08:09)
[2021-02-10] MEDS: ASPIRIN 81 MG TAB.CHEW PO SCH (08:09)
[2021-02-10] MEDS: CALCIUM CARBONATE (1250) 500 MG TABLET PO SCH ×2 (08:09→16:08)
[2021-02-10] MEDS: FUROSEMIDE 20 MG/2 ML VIAL IV SCH (08:10)
[2021-02-10] MEDS: CHOLECALCIFEROL 1,000 UNIT TABLET (VIT D3) PO SCH (08:10)
[2021-02-10] MEDS: PROSOURCE / PROSTAT (PYXIS) 30 ML UDC PO SCH (08:12)
[2021-02-10] MEDS: CLOTRIMAZOLE 1% 15 GM TUBE TP SCH ×2 (08:13→16:23)
[2021-02-10] MEDS: HYDROGEL DRESSING 90 GM TUBE TP SCH (08:13)
--- NOTE | 2021-02-10 10:25 | NUR ---
RN NOTE PATIENT IS NOTED WITH USE OF ACCESSORY MUSCLES WHILE BREATHING, MD NOTIFIED WITH NEW ORDER FOR ATIVAN 0.5MG Q6HRS PRN. MD ASSESSED PATIENT NO OTHER CHANGES AT THIS TIME. WILL CONTINUE TO MONITOR
[2021-02-10] MEDS ORDERED: POTASSIUM CHLORIDE 20 MEQ TAB.PRT.SR PO ONE (10:30)
[2021-02-10] MEDS ORDERED: LORAZEPAM 0.5 MG TABLET PO PRN (10:30)
--- NOTE | 2021-02-10 15:55 | NUR ---
RN NOTE PATIENT NOTED WITH TROUBLE SWALLOWING, MD NOTIFIED, NPO TILL SPEECH THERAPIST EVALUATES. WILL CONTINUE TO MONITOR.
[2021-02-10 16:28] VITALS: BP 130/46
[2021-02-10] MEDS ORDERED: K PHOS NEUTRAL 250 MG TABLET PO ONE (16:30)
--- NOTE | 2021-02-10 16:32 | NUR ---
RN NOTE PATIENT REFUSED INSULIN AND ACCUCHECK PATIENT DID NOT WANT TO BE POKED AT THIS TIME. EXPLAINED RISK AND BENEFITS. PATIENT STILL REFUSED. WILL CONTINUE TO MONITOR
[2021-02-10] MEDS ORDERED: FUROSEMIDE 20 MG/2 ML VIAL IV SCH (17:00)
--- NOTE | 2021-02-10 18:20 | NUR ---
RN NOTE PATIENT UNABLE TO SWALLOW PO ATIVAN NOTIFIED, GAVE NEW ORDER FOR ATIVAN 0.5MG IV Q6HRS PRN. WILL CONTINUE TO MONITOR
[2021-02-10] MEDS: LORAZEPAM INJ 2 MG/ML VIAL IV PRN (18:24)
--- NOTE | 2021-02-10 18:34 | NUR ---
MS RN CLOSING NOTES PATIENT IN BED, AWAKE. AOX2-3. ABLE TO MAKE NEEDS KNOWN. NO S/SX OF ACUTE DISTRESS NOTED, DENIES PAIN AT THIS TIME. PT ON 15LPM OXYGEN VIA NON REBREATHER MASK SATURATING AT 91%. PATIENT HAS BEEN USING ACCESSORY MUSCLES TO BREATHING DURING SHIFT, MD AWARE, GAVE NEW ORDERS. PATIENT KEPT COMFORTABLE POSSIBLE. PATIENT NOTED WITH WITH RIGHT FEMORAL CATH TRIPLE LUMEN, INTACT AND PATENT. CHAMBERS CATHETER IN PLACE DRAINING CLEAR YELLOW COLORED URINE. ALL MEDICATIONS GIVEN ORDERED. SAFETY PRECAUTIONS IN PLACE AND MAINTAINED AT ALL TIMES DURING THE SHIFT. BED IN LOWEST LOCKED POSITION, HOB ELEVATED, SIDE RAILS UP X2, CALL LIGHT AND TABLE WITHIN REACH. ALL NEEDS ATTENDED AND MET. WILL ENDORSE TO ONCOMING SHIFT.
--- NOTE | 2021-02-10 19:44 | NUR ---
MS RN OPENING NOTES RECEIVED PATIENT IN BED, ASLEEP, RESPONSIVE TO NAME, PT ON 15LPM OXYGEN VIA NON REBREATHER MASK SATURATING AT 96%. USE OF ACCESSORY MUSCLES WHEN BREATHING NOTED, MD AWARE, PATIENT NOTED WITH WITH RIGHT FEMORAL CATH TRIPLE LUMEN, INTACT AND PATENT. CHAMBERS CATHETER IN PLACE DRAINING CLEAR YELLOW COLORED URINE. SAFETY PRECAUTIONS IN PLACE AND MAINTAINED AT ALL TIMES: BED IN LOWEST LOCKED POSITION, HOB ELEVATED, SIDE RAILS UP X2, CALL LIGHT AND TABLE WITHIN EASY REACH. WILL CONTINUE TO MONITOR PATIENT'S CURRENT STATUS.
[2021-02-10 20:00] VITALS: BP 117/45
--- NOTE | 2021-02-10 22:00 | NUR ---
RN NOTES CHECKED PATIENT'S BLOOD SUGAR, RESULT 130 MG/DL, NO INSULIN COVERAGE NEEDED.,
[2021-02-11] MEDS: LORAZEPAM INJ 2 MG/ML VIAL IV PRN (02:33)
--- NOTE | 2021-02-11 05:30 | NUR ---
RN NOTES CHECKED PATIENT'S BLOOD SUGAR, RESULT IS 156.
--- NOTE | 2021-02-11 05:45 | NUR ---
RN NOTES PATIENT NOTED WITH DEEP SLOW BREATHING BREATHING, CHARGE NURSE MADE AWARE. O2 SATURATION CHECKED RESULT IS 88-90. WILL CONTINUE TO MONITOR.
--- NOTE | 2021-02-11 06:05 | NUR ---
RN NOTES. NOTED WITH NO RISE AND FALL OF THE CHEST, VITAL SIGNS UNAPPRECIATED, PUPILS DILATEDM CHARGE NURSE MADE AWARE, JEFFERSON GEORGE. DRIVER'S LICENSE REVIEWING OFFICER MADE AWARE.
--- NOTE | 2021-02-11 06:10 | NUR ---
RN NOTES POST MORTEM CARE DONE. PATIENT HANDLED WITH CARE AND DIGNITY. PLACED REMAINS IN CADAVER BAG, IDENTIFICATION ATTACHED.
--- NOTE | 2021-02-11 06:10 | NUR ---
RN NOTES CALLED PATIENT'S POA MICHAEL AT [phone], NO ANSWER, LEFT A VOICE MAIL INSTEAD.
--- NOTE | 2021-02-11 06:15 | NUR ---
RN NOTES TRIED CALLING PATIENT'S POA AGAIN MICHAEL, NO ANSWER, LEFT A VOICEMAIL.
--- NOTE | 2021-02-11 06:20 | NUR ---
RN NOTES CHARGE NURSE TRIED CALLING MICHAEL THE POA AGAIN, NO ANSWER, LEFT A MESSAGE AGAIN.
--- NOTE | 2021-02-11 06:25 | NUR ---
RN NOTES REGGIE OWENS, SPOKE WITH ISRRAEL, PER ISRRAEL WE'RE NOT MOVING FORWARD WITH THE PROCESS. ORDER JARAD,FCO [id number].
--- NOTE | 2021-02-11 06:40 | NUR ---
RN NOTES RECEIVED A CALL BACK FROM THE MICHAEL MONROE, INFORMED REGARDING PATIENT. WAS TOLD THAT SHE WILL CALL BACK REGARDING MORTUARY.
--- NOTE | 2021-02-11 06:50 | NUR ---
RN NOTES ENDORSED TO AM SHIFT THAT PATIENT'S REMAINS STILL IN THE ROOM.
--- NOTE | 2021-02-11 08:08 | NUR ---
RN NOTE PATIENT'S FAMILY PICKED UP BELONGINGS, EXCEPT BRACELET WHICH SHE WANTED TO LEAVE WITH PATIENT. SECURITY NOTIFIED TO RETIREMENT ACTUARY BODY, NURSING OCEANOGRAPHER GEOLOGICAL AWARE.
--- NOTE | 2021-02-11 08:45 | NUR ---
RN NOTE ID ON PATIENT ON LEFT ARM, PATIENT TAKEN TO MORGUE WITH RN AND SECURITY, CHART GIVEN TO NURSING HAZMAT TANKER DRIVER.
== END 2021-02-11 06:00 ==
LOC: ER 17:23 → ICU 22:23 → TELE 02-05 16:28 → MED 02-08 14:31
PROVIDERS: ADMIT Registered Nurse
PROC: 0W993ZZ Drainage of Right Pleural Cavity, Percutaneous Approach (ICD-10-PCS; principal; 2021-02-07)
DX: I11.0 Hypertensive heart disease with heart failure (principal); N17.0 Acute kidney failure with tubular necrosis; I21.A1 Myocardial infarction type 2; G92 Toxic encephalopathy; E43 Unspecified severe protein-calorie malnutrition; K76.6 Portal hypertension; M62.82 Rhabdomyolysis; J90 Pleural effusion, not elsewhere classified; J98.11 Atelectasis; L97.929 Non-pressure chronic ulcer of unspecified part of left lower leg with unspecified severity; I35.2 Nonrheumatic aortic (valve) stenosis with insufficiency; E86.0 Dehydration; E78.5 Hyperlipidemia, unspecified; E87.5 Hyperkalemia; Z95.0 Presence of cardiac pacemaker; Z86.73 Personal history of transient ischemic attack (TIA), and cerebral infarction without residual deficits; Z88.8 Allergy status to other drugs, medicaments and biological substances; Z79.899 Other long term (current) drug therapy; I48.91 Unspecified atrial fibrillation; R62.7 Adult failure to thrive; Z79.01 Long term (current) use of anticoagulants; Z91.81 History of falling; K86.89 Other specified diseases of pancreas; I70.0 Atherosclerosis of aorta; I27.29 Other secondary pulmonary hypertension; I25.10 Atherosclerotic heart disease of native coronary artery without angina pectoris; E86.1 Hypovolemia; I67.2 Cerebral atherosclerosis; B35.1 Tinea unguium; I50.810 Right heart failure, unspecified; E11.51 Type 2 diabetes mellitus with diabetic peripheral angiopathy without gangrene; E11.649 Type 2 diabetes mellitus with hypoglycemia without coma
CPT/HCPCS: 36415; 36600; 70450-TC; 71045-TC; 71250-TC; 80048-TC; 80053-TC; 80061-TC; 80076-TC; 80202-TC; 81001; 82533; 82550-TC; 82553; 82728-TC; 82803-TC; 82962-TC; 83605-TC; 83615-TC; 83735-TC; 83880; 84100-TC; 84155-TC; 84443-TC; 84484-TC; 85025-TC; 85378-TC; 85730-TC; 86140-TC; 87040-TC; 87070-TC; 87075-TC; 87081-TC; 87086-TC; 87102-TC; 88108-TC; 88305-TC; 89051-TC; 93307-TC; 93970-TC; 94799-TC; 97112-TC; 97116-TC; 97530-TC; A4216; A6248; A6253; A6403; C1751; C9113; C9803; G0378; G0480; J0456; J0696; J1160; J1815; J1940; J2060; J2543; J3370; J3490; J7030; J7050; J7060; P9047